=== PATIENT | male | born 1980 | race Caucasian/White ===

== ENCOUNTER 2017-07-10 08:00 | Day surgery (SDC) | payer BC ==
[~2017-07-10 08:00] MED LIST: LIDOCAINE 2% (SDV) 5 ML INJ
[2017-07-10] MEDS: CEFAZOLIN 2 GM/50 ML (PMX) 50 ML IVPB (09:30)
[2017-07-10] MEDS: SOD CHLORIDE 0.9% 1,000 ML IV (09:30)
[2017-07-10] MEDS ORDERED: PROPOFOL 20 ML (10:11)
[2017-07-10] MEDS ORDERED: ROCURONIUM 50 MG INJ (10:29)
[2017-07-10] MEDS ORDERED: OXYCODONE/ACETAMINOPHEN (5/325) TAB PO (10:30)
[2017-07-10] MEDS ORDERED: MIDAZOLAM 1 MG/ML 2 ML INJ IV (10:30)
[2017-07-10] MEDS ORDERED: FENTAnyl 50 MCG/ML VIAL IV ×3 (10:30)
[2017-07-10] MEDS ORDERED: LABETALOL HCL 20MG INJ IV (10:30)
[2017-07-10] MEDS ORDERED: ALBUTEROL 0.083% (NEB) 2.5 MG/3 ML AMP HHN (10:30)
[2017-07-10] MEDS ORDERED: hydrALAzine 20 MG INJ IV (10:30)
[2017-07-10] MEDS ORDERED: HYDROmorphONE (0.2 MG/ML) 10ML SYG IV ×3 (10:30)
[2017-07-10] MEDS ORDERED: ONDANSETRON 4 MG INJ IV (10:30)
[2017-07-10] MEDS ORDERED: MEPERIDINE 25 MG INJ IV (10:30)
[2017-07-10] MEDS ORDERED: DIPHENHYDRAMINE 50 MG INJ IV (10:30)
[2017-07-10] MEDS ORDERED: METOCLOPRAMIDE 10 MG INJ IV (10:30)
[2017-07-10] MEDS ORDERED: KETOROLAC 30 MG INJ IV (10:30)
[2017-07-10] MEDS ORDERED: EPHEDrine SULFATE 50 MG/5 ML SYG IV (10:30)
[2017-07-10] MEDS: BUPIVACAINE 0.25% (MPF) 30 ML INJ (10:56)
[2017-07-10] MEDS ORDERED: GLYCOPYRROLATE 0.4 MG INJ (11:24)
[2017-07-10] MEDS ORDERED: NEOSTIGMINE 3 MG/3 ML SYRINGE (11:24)
[2017-07-10] MEDS ORDERED: HYDROCODONE/APAP (5/325) TAB PO (11:30)
[2017-07-10] MEDS: OXYCODONE/ACETAMINOPHEN (5/325) TAB PO (12:22)
== END 2017-07-10 13:10 | disposition home or self-care (01) ==
LOC: SDS 08:00
DX: L05.91 Pilonidal cyst without abscess (principal)
CPT/HCPCS: 11772; 88304

== ENCOUNTER 2017-08-11 13:08 | Day surgery (SDC) | payer BC ==
[2017-08-11] MEDS ORDERED: CEFAZOLIN 2 GM/50 ML (PMX) 50 ML IVPB (15:00)
[2017-08-11] MEDS ORDERED: SOD CHLORIDE 0.9% 1,000 ML IV (15:00)
[2017-08-11] MEDS ORDERED: METOCLOPRAMIDE 10 MG INJ IV (16:30)
[2017-08-11] MEDS ORDERED: ONDANSETRON 4 MG INJ IV (16:30)
[2017-08-11] MEDS ORDERED: MEPERIDINE 25 MG INJ IV ×2 (16:30→18:00)
[2017-08-11] MEDS ORDERED: HYDROmorphONE (0.2 MG/ML) 10ML SYG IV ×4 (16:30→18:00)
[2017-08-11] MEDS ORDERED: DIPHENHYDRAMINE 50 MG INJ IV ×2 (16:30→18:00)
[2017-08-11] MEDS ORDERED: FENTAnyl 50 MCG/ML VIAL IV ×2 (16:30→18:00)
[2017-08-11] MEDS ORDERED: MIDAZOLAM 1 MG/ML 2 ML INJ (16:51)
[2017-08-11] MEDS ORDERED: CEFAZOLIN 1 GM INJ (17:27)
[2017-08-11] MEDS ORDERED: PROPOFOL 20 ML (17:27)
[2017-08-11] MEDS ORDERED: LIDOCAINE 2% (SDV) 5 ML INJ (17:27)
[2017-08-11] MEDS ORDERED: ONDANSETRON 4 MG INJ (17:28)
[2017-08-11] MEDS: BUPIVACAINE 0.25% (MPF) 30 ML INJ (17:44)
[2017-08-11] MEDS: HYDROCODONE/APAP (5/325) TAB PO (18:05)
== END 2017-08-11 18:41 | disposition home or self-care (01) ==
LOC: SDS 13:08
DX: D17.1 Benign lipomatous neoplasm of skin and subcutaneous tissue of trunk (principal)
CPT/HCPCS: 14001; 88307